=== PATIENT | male | born 1945 | race African-American/Black ===

== ENCOUNTER 2019-03-21 19:03 | Emergency (ER) | payer MEDICARE ==
[~2019-03-21] VITALS: Ht 182.8 cm; Wt 77.1 kg
[2019-03-21 20:10] LABS: BASO % 0.3 % (0.0-1.0); EOS % 0.3 % (1.0-4.0); HEMATOCRIT 32.4 % (42.0-52.0); HEMOGLOBIN 10.3 g/dl (14.0-18.0); LYMPH # 1.9 10*3/uL (1.3-4.4); LYMPH % 30.5 % (27.0-41.0); MEAN CORPUSCULAR HGB 25.8 pg (27.0-31.0); MEAN CORPUSCULAR HGB CONC 31.8 g/dl (33.0-37.0); MEAN PLATELET VOLUME 8.9 fl (9.6-12.3); MONO # 0.7 10*3/uL (0.1-1.0); MONO % 11.4 % (3.0-9.0); NEUT # 3.6 10*3/uL (2.3-7.9); NEUT % 57.3 % (47.0-73.0); PLATELET COUNT AUTOMATED 264 10*3/uL (130-400); RED CELL DISTRI WIDTH 15.6 % (0-14.5); WHITE BLOOD COUNT 6.3 10*3/uL (4.8-10.8)
[2019-03-21 20:21] LABS: CREATININE 1.58 mg/dL (0.70-1.30); POTASSIUM 3.6 mmol/L (3.5-5.1)
== END 2019-03-22 01:29 | disposition home or self-care (01) ==
LOC: ED 19:03
PROVIDERS: Emergency Medicine Emergency Medical Services
DX: K92.2 Gastrointestinal hemorrhage, unspecified (principal); R42 Dizziness and giddiness; Z86.010 Personal history of colon polyps